=== PATIENT | male | born 1980 ===

== ENCOUNTER 2022-07-16 07:47 | Emergency (ER) | payer SELFPAY ==
[2022-07-16] MEDS ORDERED: ONDANSETRON 4 MG/2 ML VIAL ONE (08:55)
[2022-07-16] MEDS ORDERED: MORPHINE 4 MG/ML SYR ONE ×2 (08:55→11:10)
[2022-07-16] MEDS ORDERED: NA CHLORIDE 0.9% 1,000 ML ONE (08:55)
--- NOTE | 2022-07-16 10:27 | RAD REPORT ---
EXAM DESCRIPTION: RAD - Ankle Right 3 View - 07/16/2022 9:06 am CLINICAL HISTORY: PAIN COMPARISON: No comparisons FINDINGS: Trimalleolar fracture is seen affecting the right angle with moderate displacement. Modera te surrounding soft tissue swelling. Syndesmotic disruption is seen. Small plantar calcaneal spur.
[2022-07-16] MEDS ORDERED: TDAP (DIPHTH,PERTUSS(ACELL),TET VAC) 0.5 ML VIAL IMVAC ONE (10:40)
--- NOTE | 2022-07-16 12:02 | EDPHYS ---
Physician Documentation [facility] Name: Olivier Wilson Age: 41 yrs Sex: Male : 1980 Arrival Date: 07/16/2022 Time: 07:48 Bed 24 Private MD: ED Physician Subhash eTjada HPI: 07/16 08:35 This 41 yrs old Male presents to ER via Wheelchair with complaints of Fall Injury. snw 08:35 Details of fall: The patient fell from a height, from a ladder, approximately 4 feet. snw Onset: The symptoms/episode began/occurred suddenly, just prior to arrival. Associated injuries: The patient sustained right medial malleolus, decreased range of motion, obvious fracture. Severity of symptoms: At their worst the symptoms were moderate. The patient has not experienced similar symptoms in the past. The patient has not recently seen a physician. last po at 0600. Historical: - Allergies: 08:19 No Known Allergies; ss - Home Meds: 08:19 None [Active]; ss - PMHx: 08:19 None; ss - PSHx: 08:19 None; ss - Immunization history:: Client reports receiving the 2nd dose of the Covid vaccine. - Social history:: Smoking status: Patient reports the use of cigarette tobacco products, denies chronic smoking, but will smoke occasionally. ROS: 08:34 Constitutional: Negative for fever, chills, and weight loss, Eyes: Negative for injury, snw pain, redness, and discharge, ENT: Negative for injury, pain, and discharge, Neck: Negative for injury, pain, and swelling, Cardiovascular: Negative for chest pain, palpitations, and edema, Respiratory: Negative for shortness of breath, cough, wheezing, and pleuritic chest pain, Abdomen/GI: Negative for abdominal pain, nausea, vomiting, diarrhea, and constipation, Back: Negative for injury and pain, : Negative for injury, bleeding, discharge, and swelling, Skin: Negative for injury, rash, and discoloration, Neuro: Negative for headache, weakness, numbness, tingling, and seizure. 08:34 MS/extremity: Positive for injury or acute deformity, decreased range of motion, pain, paresthesias, of the right medial malleolus. Exam: 08:20 Constitutional: This is a well developed, well nourished patient who is awake, alert, snw and in no acute distress. Head/Face: Normocephalic, atraumatic. Eyes: Pupils equal round and reactive to light, extra-ocular motions intact. Lids and lashes normal. Conjunctiva and sclera are non-icteric and not injected. Cornea within normal limits. Periorbital areas with no swelling, redness, or edema. ENT: Nares patent. No nasal discharge, no septal abnormalities noted. Tympanic membranes are normal and external auditory canals are clear. Oropharynx with no redness, swelling, or masses, exudates, or evidence of obstruction, uvula midline. Mucous membranes moist. Neck: Trachea midline, no thyromegaly or masses palpated, and no cervical lymphadenopathy. Supple, full range of motion without nuchal rigidity, or vertebral point tenderness. No Meningismus. Chest/axilla: Normal chest wall appearance and motion. Nontender with no deformity. No lesions are appreciated. Cardiovascular: Regular rate and rhythm with a normal S1 and S2. No gallops, murmurs, or rubs. Normal PMI, no JVD. No pulse deficits. Respiratory: Lungs have equal breath sounds bilaterally, clear to auscultation and percussion. No rales, rhonchi or wheezes noted. No increased work of breathing, no retractions or nasal flaring. Abdomen/GI: Soft, non-tender, with normal bowel sounds. No distension or tympany. No guarding or rebound. No evidence of tenderness throughout. Back: No spinal tenderness. No costovertebral tenderness. Full range of motion. Skin: Warm, dry with normal turgor. Normal color with no rashes, no lesions, and no evidence of cellulitis. Neuro: Awake and alert, GCS 15, oriented to person, place, time, and situation. Cranial nerves II-XII grossly intact. Motor strength 5/5 in all extremities. Sensory grossly intact. Cerebellar exam normal. Normal gait. 08:20 Musculoskeletal/extremity: ROM: limited active range of motion due to pain, limited passive range of motion due to pain, Pulses: are normal with no appreciated deficits, the right medial malleolus numbness. Vital Signs: 08:17 BP 128 / 85; Pulse 70; Resp 18; Temp 97.9(TE); Pulse Ox 99% on R/A; Weight 80 kg; ss Height 5 ft. 6 in. (168 cm); Pain 04/17; 08:17 Body Mass Index 28.34 (80.00 kg, 168 cm) ss [place] Coma Score: 08:17 Eye Response: spontaneous(4). Verbal Response: oriented(5). Motor Response: obeys ss commands(6). Total: 15. Trauma Score (Adult): 08:17 Eye Response: spontaneous(1); Verbal Response: oriented(1); Motor Response: obeys ss commands(2); Systolic BP: > 89 mm Hg(4); Respiratory Rate: 10 to 29 per min(4); Yesy Score: 15; Trauma Score: 12 MDM: 08:18 Patient medically screened. snw 12:10 Data reviewed: vital signs, nurses notes. Data interpreted: Pulse oximetry: on room air snw is 99 %. Interpretation: normal. Counseling: I had a detailed discussion with the patient and/or guardian regarding: the historical points, exam findings, and any diagnostic results supporting the discharge/admit diagnosis, radiology results, the need for outpatient follow up, for definitive care, to return to the emergency department if symptoms worsen or persist or if there are any questions or concerns that arise at home, observe for any s/s compartment syndrome, pt voices understanding. Special discussion: Based on the history and exam findings, there is no indication for further emergent testing or inpatient evaluation. I discussed with the patient/guardian the need to see the orthopedic surgeon for further evaluation of the symptoms. 07/16 08:20 Order name: Ankle Right 3 View XRAY; Complete Time: 10:27 snw 07/16 08:20 Order name: NPO; Complete Time: 08:29 snw 07/16 10:29 Order name: Ice pack; Complete Time: 11:13 snw 07/16 11:04 Order name: Splint - Long Leg: Posterior w/ Stirrup: well padded; Complete Time: 13:06 snw 07/16 13:08 Order name: Crutches; Complete Time: 13:49 snw 07/16 13:08 Order name: Crutch Training; Complete Time: 13:49 snw Administered Medications: 09:02 Drug: NS 0.9% 1000 ml Route: IV; Rate: 1 bolus; Site: right antecubital; [facility] 09:03 Drug: morphine 4 mg Route: IVP; Infused Over: 4 mins; Site: right antecubital; [facility] 09:03 Drug: Zofran (Ondansetron) 4 mg Route: IVP; Site: right antecubital; [facility] 10:46 Drug: Tetanus-Diphtheria Toxoid Adult 0.5 ml {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 Exp: [facility] 02/19/2023. Lot #: [id number]. } Route: IM; Site: right gluteus; 11:13 Drug: morphine 4 mg Route: IVP; Infused Over: 4 mins; Site: right antecubital; [facility] 14:00 Drug: Dilaudid (HYDROmorphone) 1 mg Route: IM; Site: right deltoid; hb Disposition: 19:20 Co-signature as Attending Physician, Subhash Tejada MD I agree with the assessment and rt plan of care. Disposition Summary: 07/16/22 12:01 Discharge Ordered Location: Home snw Condition: Stable snw Diagnosis - Displaced trimalleolar fracture of right lower leg, initial encounter for closed snw fracture Followup: snw - With: Emergency Department - When: As needed - Reason: Worsening of condition Followup: snw - With: Viral Cabrera MD - When: 1 - 2 days - Reason: Recheck today's complaints, Continuance of care Discharge Instructions: - Discharge Summary Sheet snw - Ankle Fracture snw - Cast or Splint Care, Adult snw - RICE Therapy for Routine Care of Injuries snw - Displaced Trimalleolar Ankle Fracture Treated With ORIF snw - Acute Compartment Syndrome snw Forms: - Medication Reconciliation Form snw - Thank You Letter snw - Antibiotic Education snw - Prescription Opioid Use snw - Work release form snw Prescriptions: - Mobic 7.5 mg Oral Tablet - take 1 tablet by ORAL route once daily take with food; 20 tablet; Refills: 0, snw Product Selection Permitted - Tylenol-Codeine #3 300 mg-30 mg Oral - take 2 tablet by ORAL route 1-3 times daily; 21 tablet; Refills: 0, Product snw Selection Permitted Signatures: Dispatcher [employer] Tash Monique FNP-C FNP-Diontew Xenia Doyle RN RN Cherise Whitfield RN RN Astrid Trujillo, RN RN jh5 Subhash Tejada MD MD rt
--- NOTE | 2022-07-16 12:02 | ER ---
Nurse's Notes [facility] Name: Olivier Wilson Age: 41 yrs Sex: Male : 1980 Arrival Date: 07/16/2022 Time: 07:48 Bed 24 Private MD: Diagnosis: Displaced trimalleolar fracture of right lower leg, initial encounter for closed fracture Presentation: 07/16 08:17 Chief complaint: Patient states: R ankle pain after stepping wrong off of a ladder this ss morning. Deformity noted to R ankle. Care prior to arrival: None. Mechanism of Injury: SEE TRIAGE NOTE. Trauma event details: Injury occurred: July 16, 2022. 08:17 Acuity: RICK 2 ss 08:17 Method Of Arrival: Wheelchair ss 08:19 Coronavirus screen: Client denies travel out of the [place] in the last 14 days. Ebola ss Screen: Patient denies exposure to infectious person. Patient denies travel to an Ebola-affected area in the 21 days before illness onset. Initial Sepsis Screen: Does the patient meet any 2 criteria? No. Patient's initial sepsis screen is negative. Does the patient have a suspected source of infection? No. Patient's initial sepsis screen is negative. Risk Assessment: Do you want to hurt yourself or someone else? Patient reports no desire to harm self or others. Onset of symptoms was July 16, 2022. Triage Assessment: 09:06 General: Appears uncomfortable, slender, Behavior is calm, cooperative, appropriate for jh5 age. Pain: Complains of pain in right foot and right ankle. Trauma Activation: Not Applicable Physician: ED Physician; Name: ; Notified At: ; Arrived At: Physician: General Surgeon; Name: ; Notified At: ; Arrived At: Physician: Radiology; Name: ; Notified At: ; Arrived At: Physician: Respiratory; Name: ; Notified At: ; Arrived At: Physician: Lab; Name: ; Notified At: ; Arrived At: Historical: - Allergies: 08:19 No Known Allergies; ss - Home Meds: 08:19 None [Active]; ss - PMHx: 08:19 None; ss - PSHx: 08:19 None; ss - Immunization history:: Client reports receiving the 2nd dose of the Covid vaccine. - Social history:: Smoking status: Patient reports the use of cigarette tobacco products, denies chronic smoking, but will smoke occasionally. Screenin:17 Abuse screen: Denies threats or abuse. Denies injuries from another. Tuberculosis ss screening: Never had TB. 09:07 Nutritional screening: No deficits noted. Fall Risk Secondary diagnosis (15 points) jh5 impaired mobility. Primary Survey: 08:17 NO uncontrolled hemorrhage observed. A: The client is awake and alert. The airway is ss patent. Breathing/Chest: Spontaneous respiratory effort, equal unlabored respirations, breath sounds clear bilaterally, regular pattern, symmetrical chest rise and fall. Respiratory effort: spontaneous, unlabored. Disability Pupils are equal, round, reactive to light and accommodation. Client is alert. Exposure/Environment:. Assessment: 08:23 Reassessment: LAst ate cookies at 0600. ss Vital Signs: 08:17 BP 128 / 85; Pulse 70; Resp 18; Temp 97.9(TE); Pulse Ox 99% on R/A; Weight 80 kg; ss Height 5 ft. 6 in. (168 cm); Pain 9/10; 08:17 Body Mass Index 28.34 (80.00 kg, 168 cm) ss [place] Coma Score: 08:17 Eye Response: spontaneous(4). Verbal Response: oriented(5). Motor Response: obeys ss commands(6). Total: 15. Trauma Score (Adult): 08:17 Eye Response: spontaneous(1); Verbal Response: oriented(1); Motor Response: obeys ss commands(2); Systolic BP: > 89 mm Hg(4); Respiratory Rate: 10 to 29 per min(4); Yesy Score: 15; Trauma Score: 12 ED Course: 07:48 Patient arrived in ED. as 07:52 Tash Maldonado FNP-C is PHCP. snw 07:52 Subhash Tejada MD is Attending Physician. snw 08:17 Patient has correct armband on for positive identification. ss 08:18 Triage completed. ss 08:19 Arm band placed on right wrist. ss 08:29 Astrid Trujillo, LEVON is Primary Nurse. 5 09:07 No provider procedures requiring assistance completed. Inserted saline lock: 20 gauge jh5 in right antecubital area, using aseptic technique. 09:08 Ankle Right 3 View XRAY In Process Unspecified. EDMS 12:00 Viral Cabrera MD is Referral Physician. snw 13:07 Orthoglass splint: Posterior long leg splint applied on right leg. stirrup splint mm9 applied on right leg. 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 Exp: [facility] 02/19/2023. Lot #: [id number]. } Route: IM; Site: right gluteus; 11:13 Drug: morphine 4 mg Route: IVP; Infused Over: 4 mins; Site: right antecubital; [facility] 14:00 Drug: Dilaudid (HYDROmorphone) 1 mg Route: IM; Site: right deltoid; hb Medication: 09:07 VIS not applicable for this client. [facility] Outcome: 09:07 Condition: good [facility] 12:01 Discharge ordered by . snw 14:14 Patient left the ED. hb Signatures: Dispatcher [employer] EDID Tash Maldonado, LINEN ROOM CUSTODIAN-C LINEN ROOM CUSTODIAN-CsnEleni Cristina Shelby, RN RN Cherise Whitfield RN RN Astrid Trujillo RN RN Joan Hudson mm9
[2022-07-16] MEDS ORDERED: HYDROMORPHONE HCL 1 MG/ML INJ ONE (13:52)
[2022-07-16 15:36] VITALS: BP 128/85; TEMP 97.9; O2SAT 99
== END 2022-07-16 14:14 | disposition home or self-care (01) ==
LOC: ER 07:47
PROC: 2W3LX1Z Immobilization of Right Lower Extremity using Splint (ICD-10-PCS; principal; 2022-07-16)
DX: S82.851A Displaced trimalleolar fracture of right lower leg, initial encounter for closed fracture (principal)
CPT/HCPCS: 90471; 96372; 96374; 96375; 99284; J1170; J2405; J7030

== ENCOUNTER 2022-07-20 08:57 | Day surgery (SDC) | payer SELFPAY ==
[2022-07-20 09:20] LABS: Absolute Lymphocytes (CBC) 1.9 K/uL (0.7-4.9); Hematocrit 37.3 % (39.6-49.0); Lymphocytes % 28.7 % (15.3-44.8); MCV 62.7 fL (80-100); MPV 8.3 fL (7.6-11.3); RBC Red Blood Cell Count 5.96 M/uL (4.33-5.43)
[2022-07-20] MEDS ORDERED: CEFAZOLIN SODIUM 1 GM/VIAL ONE (09:34)
[2022-07-20] MEDS ORDERED: Ringers Lactate 1,000 ML IV ONE (09:34)
[2022-07-20] MEDS ORDERED: LIDOCAINE 2% MPF 5 ML VIAL ONE (10:08)
[2022-07-20] MEDS ORDERED: KETOROLAC 30 MG/ML INJ ONE (10:08)
[2022-07-20] MEDS ORDERED: propofoL 200 MG/20 ML VIAL IV ONE (10:08)
[2022-07-20] MEDS ORDERED: dexAMETHasone 10 MG/ML VIAL ONE (10:08)
[2022-07-20] MEDS ORDERED: FENTANYL CITR 100 MCG/2 ML ONE (10:08)
[2022-07-20] MEDS ORDERED: MIDAZOLAM HCL 2 MG/2 ML INJ ONE (10:09)
[2022-07-20] MEDS ORDERED: EPHEDRINE SULF 50 MG/ML VIAL ONE (11:22)
[2022-07-20 11:37] LABS: Anisocytosis 2+; Blood Morphology Comment NOTED (NOT SEEN); Hypochromasia 2+; Platelet Estimate ADEQ; Platelets, Giant 1+; White Blood Cell Scan OK (OK)
[2022-07-20] MEDS ORDERED: ROPLVACAINE HCL 20 ML ONE (11:37)
[2022-07-20] MEDS ORDERED: ROPIVACAINE HCL 20 ML ONE (11:37)
[2022-07-20] MEDS ORDERED: EPINEPHRINE/PF 1 MG/ML AMP ONE (11:38)
[2022-07-20] MEDS ORDERED: dexAMETHasone 4 MG/ML VIAL ONE (11:38)
--- NOTE | 2022-07-20 12:32 | RAD REPORT ---
EXAM DESCRIPTION: RAD - Fluoroscopy <1 Hour - 07/20/2022 12:25 pm FINDINGS: A total of 14 intraoperative portable C-arm views were submitted from the fluoroscopic ass isted placement of fracture fixation hardware. Images show stepwise placement of the hardware with no suspicious or unexpected finding. Fluoro time was 0.3 minutes. Cumulative dose was 0.536 mGy.
[2022-07-20] MEDS ORDERED: MEPERIDINE HCL 25 MG/ML SYR ONE (12:34)
[2022-07-20] MEDS ORDERED: HYDROCODONE/APAP 10/325 TAB ONE (13:38)
[2022-07-20 14:35] VITALS: BP 136/77; O2SAT 95
[2022-07-20 14:37] VITALS: TEMP 97
--- NOTE | 2022-07-20 22:33 | OP ---
Date of Procedure: 07/20/2022 Surgeon: Viral Cabrera MD Preoperative Diagnosis: Right trimalleolar ankle fracture. Postoperative Diagnosis: Right trimalleolar ankle fracture. Procedure: Right ankle open reduction and internal fixation of medial and lateral malleolus using th e Acumed ankle system. Estimated Blood Loss: 20 cc. Complications: There were no complications. Specimen: No pathology specimens sent. Indications For Operation: Mr. Dye is a 41-year-old male who unfortunately fell off a ladder in juring his right lower extremity. He denies any other injuries and saw me yesterday in the clinic. Review of x-rays reveal a highly displaced medial and lateral malleolus fracture, the lateral malleol us fracture being quite high. There is some suspicion that he could have a syndesmotic injury and he also does have a posterior malleolus small fragment. Risks, benefits, and alternatives of different methods of treating this were discussed with the patient. Recommendation is strongly for open reduc tion and internal fixation, which may or may not preclude fixation of the posterior malleolus for syn desmotic screw. He understands things as presented and wishes to proceed. Description Of Procedure: The patient was taken to the operating room and placed in supine position. General anesthesia was obtained by the Anesthesia staff. Following this, well-padded tourniquet wa s placed on superior right thigh. Right lower extremity was then prepped and draped in the usual fas hion for procedure. Following this, the leg was then elevated, but not exsanguinated. Tourniquet wa s raised. Attention was first turned to the medial side. A standard medial incision was taken down carefully through skin and soft tissue. Meticulous hemostasis being maintained using Bovie electroca utery. This leads to the fracture site, which was gently cleansed and the fracture edges were cleane d. It was then approximated using a towel clip and held in place using K-wires. This was followed b y overdrilling of the K-wires and placement of 2 partially-threaded cannulated screws, which appeared to maintain reduction quite well. X-ray demonstrates anatomic reduction in the medial malleolus. A ttention was then turned to the lateral aspect. C-arm was brought in to mandy position of the fractur e and an incision was made along the lateral aspect just carefully through the skin, only meticulous hemostasis being maintained using Bovie electrocautery. The superficial peroneal nerve was readily i dentified and protected and appears to be essentially across the fracture site. The small amount of fascia was released to further mobilize the nerve anteriorly and the fracture site was then reduced a nd held with a clamp. This was a very thin area of the fibula and it was difficult to maintain good reduction and plate position. The plate was twisted slightly and bent, which contoured to the shape of the fibula. The fibula was then held in a position reduction as the plate was then applied using 5 screws. There was no attempt for lagging this because it was more or less a transverse fracture. Based on the position of the fracture, some concern that he may have syndesmotic injury; however, mcghee s not appear to be so on the standard mortise view. With external rotation of the foot, it was again checked. It does not appear to widen the syndesmosis. Also, a towel clip was placed on the distal fibula with using fluoroscopy and rocking to see whether or not he did have any disruption of the dis gaye syndesmosis, none of which was seen. Therefore, decision was made not to put a syndesmotic screw . Both wounds were irrigated and closed using 2-0 Vicryl followed by beck. The patient was place d in extremely well-padded sterile dressing, awakened, and taken to recovery room in good condition i n a posterior splint. /GUS Voice ID: [id number] Report ID: [id number]
== END 2022-07-20 14:21 | disposition home or self-care (01) ==
LOC: DS 08:57
PROVIDERS: ATTEND Orthopaedic Surgery
PROC: 0QSG04Z Reposition Right Tibia with Internal Fixation Device, Open Approach (ICD-10-PCS; 2022-07-20)
PROC: 0QSJ04Z Reposition Right Fibula with Internal Fixation Device, Open Approach (ICD-10-PCS; principal; 2022-07-20 12:00)
DX: S82.841A Displaced bimalleolar fracture of right lower leg, initial encounter for closed fracture (principal); S82.851A Displaced trimalleolar fracture of right lower leg, initial encounter for closed fracture
CPT/HCPCS: 36415; 76000; 80048; 85025; J0171; J0690; J1100; J2001; J2175; J2250; J2704; J2795; J3010; J7120